=== PATIENT | male | born 1960 | race Caucasian/White ===

== ENCOUNTER 2021-02-05 00:17 | Inpatient (IN) | payer OTHER ==
[~2021-02-05] VITALS: Ht 175.3 cm; Wt 75.3 kg
[2021-02-05] VITALS (11 sets, daily range): BP systolic 104–194; BP diastolic 77–111
--- NOTE | ~2021-02-05 | EMS ---
[address] [address] EMS Patient Care Report Name: NABOR CAMPUZANO Room #: 202-P ADM IN M.R.#: [id number] Admission: 02/05/21 Attend Phys: Radha Key MD Discharge: Date of : 62 Report #: [id number] THIS REPORT FOR: //name// Report Transmitted: 02/05/2021 23:01 EMS Care Summary [place], [place]/[facility] Incident [id number] @ 02/04/2021 23:48 Incident Location [address] [place] [address] Patient NABOR DAVILA Male, 60 Years 1960 Patient Address [address] [place] [address] Patient History Cardiac Condition - Other, Patient Allergies No known allergies, Patient Medications Lisinopril, Chief Complaint etoh intox Disposition Transported No Lights/[place] Reason Sick Person Transported To [facility] Narrative arrived on scene to find person sitting on the floor with crews present. airway is patent, breathing is normal, skin is pink warm and dry. he is cao4 with a gcs of 15. he has been drinking. he states that he is complaining of chest pain and alcohol intox. he was assisted to the cot where he was strapped [address] [address] EMS Patient Care Report Name: NABOR CAMPUZANO Room #: 202-P ADM IN M.R.#: [id number] Admission: 02/05/21 Attend Phys: Radha Key MD Discharge: Date of : 62 Report #: [id number] and secured. he was loaded into ambulance where vitals were monitored en route to the facility. he denies any head neck and back pain abd pain blurred or double vision and sob. there were no incidents en route to the facility. he was taken to room where report was given to rn without incident and he was left in same condition as picking up. Initial Vitals @00:09P: 123,R: 18,BP: 116/90,Pain: 0/10,GCS: 15,Glucose: 205,SpO2: 99,Revised Trauma: 12, @PTAP: 128,R: 18,BP: 120/88,GCS: 15,SpO2: 97,Revised Trauma: 12, Assessments @00:11MENTAL:Person Oriented,Time Oriented,Event Oriented,Place Oriented,SKIN:HEENT:Head/Face: No Abnormalities,Neck/Airway: No Abnormalities,LUNG SOUNDS:General: No Abnormalities,ABDOMEN:General: No Abnormalities,PELVIS//GI:EXTREMITIES:Left Arm: No Abnormalities,Right Arm: No Abnormalities,Left Leg: No Abnormalities,Right Leg: No Abnormalities,PULSE:NEURO:No Abnormalities, Impression Chest Pain, Other (Non-Cardiac) Procedures @[id number]-[id number] ECGResponse: Unchanged Timeline COMMANDING OFFICER MOTORIZED SQUAD,12-Lead ECG,Response: Unchanged COMMANDING OFFICER MOTORIZED SQUAD,BP: 120/88 M,PULSE: 128,RR: 18 R,SPO2: 97 Ox,ETCO2: ,BG: ,PAIN: ,GCS: 15, 23:44,Dispatch Notified 23:48,Dispatched 23:50,En Route 23:59,On Scene 00:01,At Patient 00:09,BP: 116/90 M,PULSE: 123,RR: 18 R,SPO2: 99 Ox,ETCO2: ,B,PAIN: 0,GCS: 15, 00:09,Depart Scene 00:13,At Destination 00:30,Call Closed 23:44,Call Received Disclaimer v1.1 Copyright 2020 [employer] This EMS Care Summary contains data elements from the applicable legal record (which may be displayed differently). It is designed to provide pertinent information for the following purposes: continuity of care, clinical quality, and state data reporting. The complete legal record is available to ED staff [address] [address] EMS Patient Care Report Name: NABOR CAMPUZANO Room #: 202-P ADM IN ..#: [id number] Admission: 02/05/21 Attend Phys: Radha Key MD Discharge: Date of : 62 Report #: [id number] and administrators of the receiving hospital in [employer]'s Patient Tracker. All data is provided "as is."
[2021-02-05 00:58] LABS: ABSOLUTE NEUTROPHILS 13.6 thou/uL (1.4-8.2); BASOPHILS 0.3 % (0.0-2.0); HEMATOCRIT 37.1 % (42.0-52.0); HEMOGLOBIN 13.2 gm/dL (14.0-18.0); LYMPHOCYTES 5.6 % (24.0-44.0); MCH 34.1 pg (26.0-34.0); MCHC 35.6 g/dL (28.0-37.0); MONOCYTES 4.4 % (1.0-8.0); PLATELET COUNT 209 thou/uL (150-400); POLYS 89.7 % (36.0-66.0); RBC 3.86 mil/uL (4.50-6.00); RDW 14.3 % (10.5-14.5); WBC 15.2 thou/uL (4.0-11.0)
[2021-02-05 01:25] LABS: ALBUMIN 4.1 g/dL (3.4-5.0); CALCIUM 9.2 mg/dL (8.5-10.1); CREATININE 3.3 mg/dL (0.7-1.3); DIRECT BILIRUBIN 1.1 mg/dL (<0.1-0.2); MAGNESIUM 1.4 mg/dL (1.8-2.4); PHOSPHORUS 4.7 mg/dL (2.5-4.9); TOTAL PROTEIN 7.8 g/dL (6.4-8.2)
[2021-02-05 01:29] LABS: POTASSIUM 1.9 mmol/L (3.5-5.1); TOTAL BILIRUBIN 2.6 mg/dL (0.2-1.0)
[2021-02-05 01:30] LABS: TROPONIN-I 1.01 ng/mL (<0.06)
--- NOTE | 2021-02-05 03:30 | NUR ---
PT IS ALERT TO SELF. HOMELESS COMPLAINS OF CHEST PAIN. NOTIFIED CARDIOLOGY OF CONSULT. ETOH PROTOCAL STARTED. TRYIES TO GET OUT OF BED VERY IMPULSIVE. CIWA SCALE IS 14. TREMORS. REQUESTING WATER KEPT PT NPO FOR CARDIOLOGY TO SEE PT. MEDS GIVEN AND PHSYICAN NOTIFIED DUE TO VOMITING AND CIWA SCALE. ATIVAN GIVEN IV FOR PT AT MAR TIME. LACERATION ON LIP AND LACERATION ON LEFT EAR. FALL COUPLE OF DAYS AGO . HE REPORTS HE DRINKS VODKA 1/2 PINT DRINKER HE REPORTS. HAND TREMORS REPORTS HE IS AT [facility].
[2021-02-05 05:18] LABS: CREATININE 2.4 mg/dL (0.7-1.3)
[2021-02-05 05:25] LABS: CHOLESTEROL 169 mg/dL (<200); HDL CHOLESTEROL 85 mg/dL (>40); LDL CHOLESTEROL 63 mg/dL (<100); POTASSIUM 1.9 mmol/L (3.5-5.1); SERUM ASSESSMENT Clear; TRIGLYCERIDE 108 mg/dL (<150); VLDL 22 mg/dL (<40)
--- NOTE | 2021-02-05 08:27 | NUR ---
AFTER SHIFT CHANGE PT REPORTED TO NURSE CHEST PAIN OF A 9/10. PT STATES "IT FEELS LIKE AN ELECTRICAL SHOCK GOING THROUGH MY CHEST". BLOOD PRESSURE WAS 194/86 WITH A HR OF 129. CHEST PAIN PROTOCOL STARTED, 1 NITRO SUBLINGUAL GIVEN, STAT EKG ORDERED. CARDIOLOGY PHYSICAL SCIENTIST ISAK ON UNIT AND ASSESSED PT. NO RAPID REPONSE CALLED DUE TO CARDIOLOGY PHYSICAL SCIENTIST BEING HERE. BLOOD PRESSURE WAS TAKEN AGAIN AND WAS 136/82 WITH A HR OF 139. PHYSICAL SCIENTIST STATED SHE CAN NOT ORDER MORPHINE SO WE WILL NOTIFY ELECTROCARDIOGRAPHIC TECHNICIAN. OK BY PHYSICAL SCIENTIST GIVEN TO GO AHEAD AND GIVE 2MG LOREZAPAM PER CWAL PROTOCOL. 0815 5MG LOPRESSOR ORDERED AND GIVEN. BLOOD PRESSURE 147/99, HR 135. LOREZAPAM GIVEN AT THIS TIME AFTER LOPRESSOR. 0826- BLOOD PRESSURE 152/103. HR 102. 1 NITRO SUBLINGUAL GIVEN. BLOOD PRESSURE 134/63, HR 114. 0836, DR. ACHARYA ROUNDED, STATED NOT TO GIVE ANY MORE NITRO, AND NO TO MORPHINE ORDER. CHANGE PANTOPRAZOLE ORDER TO BID AND OK TO START PT ON HEART HEALTHY DIET.
--- NOTE | 2021-02-05 08:49 | EKG ---
[place] [address] [facility] [place] [address] ELECTROCARDIOGRAM REPORT Name: JUSTENNABOR DRE Room #: 202-P ADM IN M.R.#: [id number] Admission: 02/05/21 Attend Phys: Radha Key MD Discharge: Date of : 62 Report #: [id number] [facility] ED Test Date: 2021-02-05 Test Time: 00:27:03 Pat Name: NABOR CAMPUZANO Department: Room: 202 Gender: M Equipment Operator: : 1960 Requested By: Christian Holt Order Number: [id number] MD: Wally Whitten Measurements Intervals [place] Rate: 132 P: 75 [place]: 115 QRS: 58 QRSD: 88 T: 90 QT: 397 QTc: 589 Interpretive Statements Sinus tachycardia Nonspecific ST segment abnormality Prolonged QT interval Baseline wander in lead(s) I No previous ECG available for comparison Electronically Signed On 02-05-2021 8:49:54 CDT by Wally Whitten [email or web address] <ELECTRONICALLY SIGNED> By: Wally Whitten MD, [facility] 02/05/21 0849 0027 0027 Wally Whitten MD, FACC /EPI
--- NOTE | 2021-02-05 08:52 | EKG ---
[place] [address] [facility] [place] [place] [address] ELECTROCARDIOGRAM REPORT Name: JUSTENNABOR Room #: 202-P ADM IN M.R.#: [id number] Admission: 02/05/21 Attend Phys: Radha Key MD Discharge: Date of : 62 Report #: [id number] [facility] Test Date: 2021-02-05 Test Time: 07:46:22 Pat Name: NABOR CAMPUZANO Department: Room: 202 P Gender: M Medicine Technologist: JEANNIE : 1960 Requested By: Xavier Villalta Order Number: [id number] MD: Wally Whitten Measurements Intervals [place] Rate: 139 P: 36 [place]: 111 QRS: 34 QRSD: 82 T: 104 QT: 342 QTc: 520 Interpretive Statements Sinus tachycardia Nonspecific ST segment abnormality Prolonged QT interval Compared to ECG 02/05/2021 00:27:03 No significant change was found Electronically Signed On 02-05-2021 8:51:51 CDT by Wally Whitten [email or web address] <ELECTRONICALLY SIGNED> By: Wally Whitten MD, [facility] 02/05/21 0851 5 5 Wally Whitten MD, [facility] /EPI
--- NOTE | 2021-02-05 14:41 | 2DMMODE ---
[facility] [place] [address] 2 D/M-MODE ECHOCARDIOGRAM Name: JUSTENNABOR Room #: 202-P ADM IN M.R.#: [id number] Admission: 02/05/21 Attend Phys: Radha Key MD Discharge: Date of : 62 Report #: [id number] THIS REPORT FOR: cc: [facility] - Clinic physician unknown [facility] - Clinic physician unknown Martin Reyna MD ~ APPROVED REPORT Study performed: 02/05/2021 13:33:47 EXAM: Comprehensive 2D, Doppler, and color-flow Echocardiogram Patient Location: Bedside Room #: 202 Status: routine BSA: 1.86 Rhythm: NSR Other Information Study Quality: Adequate Indications Chest Pain 2D Dimensions IVSd: 9.70 (7-11mm) LVOT Diam: 20.20 (18-24mm) LVDd: 44.73 mm PWd: 10.42 (7-11mm) Ascending Ao: 36.26 (22-36mm) LVDs: 31.32 (25-40mm) Aortic Root: 37.15 mm IVC: 17.00 mm Aortic Valve AoV Peak Jeremy.: 1.06 m/s AO Peak Gr.: 4.49 mmHg LVOT Max P.33 mmHg LVOT Max V: 1.04 m/s SURAJ Vmax: 3.15 cm2 Pulmonary Valve PV Peak Jeremy.: 0.96 m/s PV Peak Gr.: 3.66 mmHg Left Ventricle The left ventricle is normal size. There is normal LV segmental wall motion. There is normal left ventricular wall thickness. Left ventricular systolic function is normal. LVEF is 55-60%. The left [facility] [address] [place] [address] 2 D/M-MODE ECHOCARDIOGRAM Name: NABOR CAMPUZANO Room #: 202-P ADM IN M.R.#: [id number] Admission: 02/05/21 Attend Phys: Radha Key MD Discharge: Date of : 62 Report #: [id number] ventricular diastolic function is abnormal. Right Ventricle The right ventricle is normal size. The right ventricular systolic function is normal. Atria The left atrium size is normal. The right atrium size is normal. Aortic Valve The aortic valve is normal in structure. No aortic regurgitation is present. There is no aortic valvular stenosis. Mitral Valve The mitral valve is normal in structure. There is no mitral valve regurgitation noted. No evidence of mitral valve stenosis. Tricuspid Valve The tricuspid valve is normal in structure. There is no tricuspid valve regurgitation noted. Pulmonic Valve The pulmonary valve is normal in structure. There is no pulmonic valvular regurgitation. Great Vessels The aortic root is normal in size. IVC is normal in size and collapses >50% with inspiration. Pericardium There is no pericardial effusion. <Conclusion> The left ventricle is normal size. There is normal left ventricular wall thickness. Left ventricular systolic function is normal. The right ventricle is normal size. The left atrium size is normal. The aortic valve is normal in structure. There is no mitral valve regurgitation noted. <ELECTRONICALLY SIGNED> By: Martin Reyna MD 02/05/21 1441 144 144 Martin Reyna MD /INF
--- NOTE | 2021-02-05 18:34 | NUR ---
AT BEGINNING OF SHIFT PT HAD CRITICAL K OF 1.9 FROM AM LABS. PT HAD ALREADY RECEIVED 1 BAG OF 20MEQ OF K. THIS RN ONCE 1ST BAG WAS COMPLETE STARTED 2ND BAG OF K. FOR A TOTAL OF 40MEQ OF K. HOSPITALIST ROUNDED AND INITIALLY WROTE FOR NEW K ORDER AT TID BUT THEN CHANGED ORDER TO GIVE K IV BID. NEPHROLOGY WROTE ORDERS FOR PO K BUT THAT WAS NOT GIVEN DUE TO BEING A DUPLICATE OF THE IV K. LAB REDRAW ORDERS ALSO PLACED BY HOSPITALIST. PT HAS REMAINED ST THIS SHIFT.
[2021-02-06 04:25] VITALS: BP 153/101
[2021-02-06 04:55] LABS: HEMATOCRIT 25.3 % (42.0-52.0); MCH 35.5 pg (26.0-34.0); MCHC 36.7 g/dL (28.0-37.0); RBC 2.61 mil/uL (4.50-6.00); WBC 10.7 thou/uL (4.0-11.0)
[2021-02-06 05:21] LABS: HEMOGLOBIN 9.3 gm/dL (14.0-18.0)
[2021-02-06 05:31] LABS: CALCIUM 7.7 mg/dL (8.5-10.1); CREATININE 1.4 mg/dL (0.7-1.3); MAGNESIUM 1.8 mg/dL (1.8-2.4); TROPONIN-I 0.24 ng/mL (<0.06)
[2021-02-06 05:33] LABS: POTASSIUM 2.9 mmol/L (3.5-5.1)
[2021-02-06 08:09] VITALS: BP 185/112
--- NOTE | 2021-02-06 10:58 | NUR ---
THIS MORNING PT HAD A CHEST PAIN, EKG WAS ORDERD CARDIOLOGY WAS NOTIFIED, ATIVAN PO IS BEING GIVEN SINCE PT IS ABLE TO TOLERATE PO, CIWA SCORING AT 10 AT THIS TIME. PT IS BEING INCONTINENT, RN RECOMMENDED CONDOM CATH, PT PRESENTED THREATENING BEHAVIOUR, RN DID NOT APPLY THE CONDOM CATH. POTASSIUM IS STILL LOW, SPOKE ABOUT IT WITH , 40MEQ PO BEING GIVEN POST 40MEQ IV WAS GIVEN. LAST K CHECK WAS 3.0 WILL CONTINUE SUPPORTING CARE FOR ETOH WITHDRAWAL
[2021-02-06 11:13] VITALS: BP 154/87
--- NOTE | 2021-02-06 13:08 | EKG ---
[address] [place] [address] ELECTROCARDIOGRAM REPORT Name: NABOR CAMPUZANO Room #: 202-P ADM IN M.R.#: [id number] Admission: 02/05/21 Attend Phys: Radha Key MD Discharge: Date of : 62 Report #: [id number] [facility] Test Date: 2021-02-06 Test Time: 08:36:13 Pat Name: NABOR CAMPUZANO Department: Room: 202 P Gender: M Personnel Security Specialist: JEANNIE : 1960 Requested By: Martin Reyna Order Number: [id number] MD: Kwadwo Posadas Measurements Intervals [place] Rate: 110 P: 52 [place]: 139 QRS: 44 QRSD: 88 T: 55 QT: 366 QTc: 496 Interpretive Statements Sinus tachycardia Compared to ECG 02/05/2021 07:46:22 ST (T wave) deviation no longer present Electronically Signed On 02-06-2021 13:08:05 CDT by Kwadwo Posadas [email or web address] <ELECTRONICALLY SIGNED> By: Kwadwo Posadas MD 02/06/21 1308 D: 05/835 5 Kwadwo Posadas MD /JOB
[2021-02-06 14:17] VITALS: BP 170/103
--- NOTE | 2021-02-06 16:36 | NUR ---
Patient admits with ETOH withdraw and fall at home. Patient confused and agitated was given medication per RN. Patient resting. Patient has ID insurance. [facility] following
[2021-02-06 19:35] VITALS: BP 169/101
[2021-02-07] VITALS (77 sets, daily range): BP systolic 83–185; BP diastolic 50–132
--- NOTE | 2021-02-07 00:34 | NUR ---
pt is holding his chest and is nausea and voniting with his chest pain. BP is elevated, nitro given and metoprolol given. spoke with david, he stated clearly pt needs to be snowed and needs his alcohol withdrawl controlled. pt has been given ativen po and he is continuing to be agitated. spoke with rocket engine component mechanic RETAINING ROOM CUTTER, icu transfer ordered.
--- NOTE | 2021-02-07 01:39 | NUR ---
transferred to ICU at approx 0115. second dose of nitro given at 0105. at time of transfer pt verbalizing/yelling. He had not been able to verbalize words clearly just one hour prior.
[2021-02-07 05:07] LABS: BE(vivo) 4.4 mmol/L (-2 to +3); PO2 107.4 mmHg (80.0-100.0); pH 7.486 (7.360-7.450); sO2 98.2 % (92.0-98.0)
[2021-02-07 05:24] LABS: HEMATOCRIT 22.1 % (42.0-52.0); MCH 35.7 pg (26.0-34.0); MCV 99.1 fL (80.0-100.0); RBC 2.23 mil/uL (4.50-6.00); RDW 15.2 % (10.5-14.5); WBC 8.5 thou/uL (4.0-11.0)
[2021-02-07 06:09] LABS: CALCIUM 7.7 mg/dL (8.5-10.1); CREATININE 1.2 mg/dL (0.7-1.3); POTASSIUM 3.2 mmol/L (3.5-5.1); TROPONIN-I 0.08 ng/mL (<0.06)
--- NOTE | 2021-02-07 06:41 | NUR ---
Received patient from about 0120. Patient awake and very restless. Patient became extremely combative, thrashing, and yelling. 2mg Ativan given. Waiting for Preceex gtt. Patient continued to become more and more agitated requiring 4 people to hold him in the bed. Order for IM Zyprexa given by JESSICA Pérez. This was given. Still very agitated. Precedex bolus given and gtt started. Still very agitated with HR in the 150's and RR in the 50's. Additional 4 mg Ativan given per [facility] protocol. With this and the Precedex gtt, patient finally started to settle down. HR dropped into the low 100's. RR in the 40's. and blood pressure in the low 100's. Patient has required several more doses of ativan as he periodically wakes and becomes agitated, increasing HR and RR. ABG done because of the nature of his breathing. Results WNL. Am labs drawn. Results noted. K+ noted to be low. Patient already on BID potassium. Adequate oxygenation on 2-4L. Minimal U/O.Patient is not progreswsing towards goals.
--- NOTE | 2021-02-07 08:44 | EKG ---
[address] [address] ELECTROCARDIOGRAM REPORT Name: NABOR CAMPUZANO Room #: 247-P ADM IN M.R.#: [id number] Admission: 02/05/21 Attend Phys: Radha Key MD Discharge: Date of : 62 Report #: [id number] [facility] Test Date: 2021-02-07 Test Time: 00:05:50 Pat Name: NABOR CAMPUZANO Department: Room: 247 Gender: M Adzing And Boring Machine Helper: [id number] : 1960 Requested By: Alexandra Pérez Order Number: [id number] : Cornelio De Leon Measurements Intervals [place] Rate: 131 P: 41 NE: 103 QRS: 29 QRSD: 80 T: 39 QT: 320 QTc: 473 Interpretive Statements Sinus tachycardia Compared to ECG 02/06/2021 08:36:13 No significant changes Electronically Signed On 02-07-2021 8:44:04 CDT by Cornelio De Leon [email or web address] <ELECTRONICALLY SIGNED> By: Cornelio De Leon MD, [facility] 02/07/21 0844 0005 Hanny De Leon MD, FACC /EPI
[2021-02-07 11:31] LABS: URINE BLOOD 3+ (Negative); URINE GLUCOSE-RANDOM* NEGATIVE (Negative); URINE KETONES 1+ (Negative); URINE NITRITE-REFLEX NEGATIVE (Negative); URINE PROTEIN (DIPSTICK) 2+ (Negative)
[2021-02-07 11:34] LABS: URINE CLARITY SL HAZY; URINE COLOR AMBER; URINE LEUKOCYTES-REFLEX 1+ (Negative)
[2021-02-07 11:35] LABS: ICTOTEST (BILI CONFIRMATORY) Negative (Negative); URINE BILIRUBIN NEGATIVE (Negative)
[2021-02-07 11:49] LABS: CASTS None Seen /LPF (None Seen); SQUAMOUS 0-3 Few /LPF (0-3)
[2021-02-07 11:50] LABS: BACTERIA-REFLEX None Seen /HPF (None Seen); CRYSTALS None Seen /LPF (None Seen); URINE RBC >20 Many /HPF (NONE SEEN); URINE WBC-REFLEX 0-5 Rare /HPF (0-5)
--- NOTE | 2021-02-07 13:30 | NUR ---
Temperature noted to physicians this am. Order for potassium noted to Dr. LANE, he wants another round of potassium given this afternoon after the am dose given. Labs reviewed with physician. Question aspiration pneumonia, antibiotics to start. Cultures sent first. Ciwa's as documented. Report given to another TRACK BROOM OPERATOR for continuation of care. Urine output noted to physician as well as blood pressure, IV fluid bolus provided per MD order.
[2021-02-07 15:42] LABS: INR 1.14; PROTIME 12.3 Seconds (10.5-12.1)
[2021-02-07 15:47] LABS: % SATURATION 9 % (20-39); IRON 14 ug/dL (65-175); TIBC 158 ug/dL (250-450)
[2021-02-08] VITALS (42 sets, daily range): BP systolic 94–138; BP diastolic 56–92
[2021-02-08 00:06] LABS: HAV IgM AB (ANTI-HAV IgM) Negative (Negative); HEPATITIS B SURFACE AG Negative (Negative); HEPATITIS C VIRUS AB <0.1 (0.0-0.9)
[2021-02-08 05:10] LABS: HEMATOCRIT 25.4 % (42.0-52.0); HEMOGLOBIN 9.1 gm/dL (14.0-18.0); MCH 35.7 pg (26.0-34.0); MCHC 35.8 g/dL (28.0-37.0); MCV 99.7 fL (80.0-100.0); RBC 2.55 mil/uL (4.50-6.00); WBC 11.6 thou/uL (4.0-11.0)
[2021-02-08 05:19] LABS: CALCIUM 7.8 mg/dL (8.5-10.1); CREATININE 1.3 mg/dL (0.7-1.3); POTASSIUM 3.9 mmol/L (3.5-5.1)
--- NOTE | 2021-02-08 06:30 | NUR ---
Received pt. on 2L/NC .Pt. sounds gurgly and unable to clear secretions. Suction orally per savannah prn. Tachypneic with resp rate 28/min. Dr. Ontiveros notified and order received. IV fluids dc'd and lasix 40 mg IV given and diuresed well. RT titrated O2 to keep O2 sat >90%. At 2315 O2 at 3L/NC then 6L. Around MN , RT placed 100% NRB around MN then titrated back down to 6L and around 0300 back to 100% NRB. O2 sat has been in the upper 90's. Pt. repositioned for comfort. He has been afebrile. Lab called for positive blood culture which has been conveyed to DIRECTOR PRODUCT SAFETY immigration investigator. ID consult placed and called this am. Psych consult also called to answering service. Pt. has been restless and trashes around on bed when awake. Precedex gtt. on max dose and prn lorazepam IV 2 mg given x1 dose.
[2021-02-08 15:48] LABS: ALBUMIN 1.5 g/dL (3.4-5.0); DIRECT BILIRUBIN 0.3 mg/dL (<0.1-0.2); TOTAL BILIRUBIN 0.6 mg/dL (0.2-1.0); TOTAL PROTEIN 3.5 g/dL (6.4-8.2)
--- NOTE | 2021-02-08 18:23 | NUR ---
ciwa score this shift 7-12. more responsive this afternoon. followed simple command and opened eyes spontaneously. vital signs wnl. spoke with eileen and updated her on condition, progress and plan of care.
[2021-02-09] VITALS (24 sets, daily range): BP systolic 108–163; BP diastolic 74–114
--- NOTE | 2021-02-09 05:33 | NUR ---
PT HAS BEEN AGITATED OFF AND ON THROUGHOUT SHIFT, CAN GIVE BIRTHDATE ACCURATELY, BUT DOES NOT KNOW THE CURRENT MONTH OR YEAR. SPEECH IS GARBLED AND DIFFICULT TO UNDERSTAND. OCCASIONALLY STATES HE IS IN THE HOSPITAL, CANNOT NAME WHICH ONE. BECAME EXTREMELY ANXIOUS AND AGITATED APPROXIMATELY 0400, ASKING FOR HIS , STATING THAT IT WAS A MISTAKE FOR HIM TO BE IN THE HOSPITAL, AND THAT HE WAS BEING KIDNAPPED. ATTEMPTED TO REORIENT AND REASSURE PT, BUT REQUIRED ATIVAN TO CALM DOWN. SR-ST, BP STABLE, ON 2L NC. ONE EPISODE OF DESAT DOWN TO 83%, WAS ABLE TO COUGH AND CLEAR SECRETIONS AND EPISODE RESOLVED. REMAINS ON MAX DOSE PRECEDEX. BATH GIVEN, TOLERATED WELL. FOLLOWS COMMANDS BUT DOES NOT APPEAR TO TRACK LONG SENTENCES.
--- NOTE | 2021-02-09 14:00 | NUR ---
discussed during am rounds and los. cont to required restraints rt agitation. o2 per nasal cannula. no contacts for shmuel. no anticipated dc over the weekend. will cont following as needed for dc needs.
--- NOTE | 2021-02-09 14:06 | NUR ---
ASSUMED CARE IF PT AROUND 1300. PT RESTING QUIETLY. VSS, PRECEDEX GTT INFUSING PER ORDER, JOE TO LISETH. WILL CONTINUE TO MONITOR.
[2021-02-10] VITALS (12 sets, daily range): BP systolic 146–174; BP diastolic 91–104
--- NOTE | 2021-02-10 06:46 | NUR ---
ASSESSMENTS CHARTED, MEDS CHARTED GIVEN. PATIENT IN BED DURING SHIFT. CONFUSED, RESTLESS DURING SHIFT. ON PRECIDEX DRIP DURING SHIFT. INCREASED DRIP FROM 1.2 TO 1.4MCG/KG/HR DURING SHIFT THE PATIENT WAS VERY RESTLESS WITH MAX LORAZEPAM. NPO DURING SHIFTS. DID NOT REQUIRE COVERAGE FOR BLOOD GLUCOSE. ON RESTRAINTS [address] PRECAUTIONS IN PL[address] DURING SHIFT.
[2021-02-11] VITALS (25 sets, daily range): BP systolic 148–182; BP diastolic 85–110
[2021-02-11 04:26] LABS: HEMOGLOBIN 7.3 gm/dL (14.0-18.0); WBC 10.7 thou/uL (4.0-11.0)
[2021-02-11 04:29] LABS: MCH 35.5 pg (26.0-34.0); MCHC 36.6 g/dL (28.0-37.0); MCV 97.1 fL (80.0-100.0); RBC 2.05 mil/uL (4.50-6.00); RDW 15.7 % (10.5-14.5)
[2021-02-11 04:34] LABS: HEMATOCRIT 19.9 % (42.0-52.0)
[2021-02-11 04:42] LABS: ALBUMIN 1.7 g/dL (3.4-5.0); CALCIUM 8.1 mg/dL (8.5-10.1); CREATININE 0.8 mg/dL (0.7-1.3); MAGNESIUM 1.4 mg/dL (1.8-2.4); PHOSPHORUS 3.4 mg/dL (2.5-4.9); TOTAL BILIRUBIN 1.5 mg/dL (0.2-1.0); TOTAL PROTEIN 5.6 g/dL (6.4-8.2)
[2021-02-11 04:43] LABS: POTASSIUM 2.6 mmol/L (3.5-5.1)
--- NOTE | 2021-02-11 05:28 | NUR ---
PT BEEN RESTING IN NO NEW ACUTE DISTRESS.PT LIGHTLY SEDATED ON PRECEDEX.CONTINUE TO DISPLAY ETOH WITHDRAWAL S/SX WITH CIWR OF 15.SEVERELY AGITATED INTERMITTENTLY REQUIRING SEDATIVES PRN.REPOSITIONED IN BED FREQUENTLY FOR COMFORT.PT ALERT TO SELF,FOLLOWS SIMPLE COMMANDS.OPEN EYES SPONTANEOUSLY.VSS.CLONIDINE GIVEN FOR HTN.DIAZ DD LARGE AMOUNT OF URINE.CRITICAL LABS CALLED IN TO GEODETIC TECHNICIAN,SEE N/OS.PT FREQUENTLY ASKING FOR HIS ,REORIENTED FREQUENTLY.ANTIBIOTICS INFUSED PER ORDERS,TOLERATING.SR ON TELE.PT DENIES ANY PAIN.POC IS TO CONTINUE W/CURRENT ORDERS ADN MEDICAL MANAGEMENT.
[2021-02-11 09:03] LABS: HEMATOCRIT 20.7 % (42.0-52.0); HEMOGLOBIN 7.1 gm/dL (14.0-18.0)
--- NOTE | 2021-02-11 09:53 | NUR ---
ASSUMED CARE OF PT AT 0700, PT IS AGITATED, YELLING, MOANING, CRYING OUT. IS NOT ORRIENTED AT ALL
[2021-02-12] VITALS (29 sets, daily range): BP systolic 138–211; BP diastolic 81–157
[2021-02-12 05:46] LABS: HEMATOCRIT 20.7 % (42.0-52.0); HEMOGLOBIN 7.5 gm/dL (14.0-18.0); MCH 35.3 pg (26.0-34.0); MCHC 36.2 g/dL (28.0-37.0); MCV 97.7 fL (80.0-100.0); RBC 2.12 mil/uL (4.50-6.00); RDW 16.3 % (10.5-14.5); WBC 11.4 thou/uL (4.0-11.0)
[2021-02-12 05:52] LABS: CALCIUM 8.3 mg/dL (8.5-10.1); CREATININE 0.8 mg/dL (0.7-1.3)
[2021-02-12 05:56] LABS: MAGNESIUM 1.6 mg/dL (1.8-2.4); PHOSPHORUS 3.3 mg/dL (2.6-4.7); POTASSIUM 2.9 mmol/L (3.5-5.1)
--- NOTE | 2021-02-12 06:00 | NUR ---
REMAINS ON ALCHOL WITHDRAWL PROTOCAL PT HAS PERIODS OF RESTLESSNESS AND HOWLING LIKE A FALCON CARINE. PRECEDEX 1.4 ATIVAN PRN PROTOCAL. AFEBRILE. 1400 CC UO THIS SHIFT. SINUS RHYTHM. WILL CONT TO MONITOR
--- NOTE | 2021-02-12 08:46 | NUR ---
Rec goal tpn of 75ml/hr.
--- NOTE | 2021-02-12 10:55 | NUR ---
RN performed bedside swallow - pt able to take some small pills with water if sitting up in bed.
--- NOTE | 2021-02-12 14:07 | NUR ---
chart review. discuss during los and am rounds. [facility] no contacts for shmuel. will cont following as needed for dc needs. cont confused with agitation.
--- NOTE | 2021-02-12 22:33 | NUR ---
Unable to perform accurate CIWA assessment due to patients condition.
--- NOTE | 2021-02-12 23:57 | NUR ---
Blood pressures may be innaccurate due to patient movement and inability to stay still when cuff goes off.
[2021-02-13] VITALS (25 sets, daily range): BP systolic 155–195; BP diastolic 92–143
[2021-02-13 03:42] LABS: CALCIUM 8.3 mg/dL (8.5-10.1); CREATININE 0.8 mg/dL (0.7-1.3)
[2021-02-13 03:47] LABS: MAGNESIUM 1.8 mg/dL (1.8-2.4)
[2021-02-13 04:23] LABS: BE(vivo) -1.3 mmol/L (-2 to +3); HCO3 20.9 mmol/L (22.0-26.0); PCO2 27.6 mmHg (35.0-45.0); PO2 89.1 mmHg (80.0-100.0); pH 7.497 (7.360-7.450); sO2 97.5 % (92.0-98.0)
--- NOTE | 2021-02-13 04:44 | NUR ---
RN expressed concerns regarding patients high blood pressure and difficulty breathing with YANDEL Womack. Orders received. Wll continue to monitor.
--- NOTE | 2021-02-13 08:10 | NUR ---
ASSUMED CARE OF PT AT 0700. PATIENT IS STILL DETOXING, HE IS AGGITATED AND RESTLESS AND THE HALDOL ISN'T HELPING AND NEITHER IS THE ATIVAN OR PRECEDEX.
[2021-02-14] VITALS (23 sets, daily range): BP systolic 108–209; BP diastolic 71–129
[2021-02-14 05:43] LABS: HEMATOCRIT 21.8 % (42.0-52.0); HEMOGLOBIN 7.6 gm/dL (14.0-18.0); MCH 33.8 pg (26.0-34.0); MCV 96.7 fL (80.0-100.0); RBC 2.25 mil/uL (4.50-6.00); RDW 16.2 % (10.5-14.5); WBC 16.2 thou/uL (4.0-11.0)
[2021-02-14 05:50] LABS: CALCIUM 8.2 mg/dL (8.5-10.1); CREATININE 0.8 mg/dL (0.7-1.3); MAGNESIUM 1.8 mg/dL (1.8-2.4); PHOSPHORUS 2.2 mg/dL (2.5-4.9)
[2021-02-14 05:53] LABS: POTASSIUM 2.7 mmol/L (3.5-5.1)
--- NOTE | 2021-02-14 19:21 | NUR ---
pt oriented to self today. compliant w/nurisng care throughout most of shift. stated seing people in corner in am and, "flashes of light," in afternoon. pt unable to get out of chair due to pt weakness and lack of corridantion. potassium replaced, now theraperutic. restraints off 1500 and now w/1:1. prn for agitation given x1. remains on precdex gtt, increased to 1.4 in evening.
[2021-02-15] VITALS (18 sets, daily range): BP systolic 124–182; BP diastolic 76–111
[2021-02-15 05:50] LABS: RBC 1.91 mil/uL (4.50-6.00); WBC 12.4 thou/uL (4.0-11.0)
[2021-02-15 05:52] LABS: MCH 33.4 pg (26.0-34.0); MCHC 34.4 g/dL (28.0-37.0); MCV 97.3 fL (80.0-100.0)
[2021-02-15 05:54] LABS: HEMATOCRIT 18.6 % (42.0-52.0); HEMOGLOBIN 6.4 gm/dL (14.0-18.0)
[2021-02-15 06:10] LABS: CALCIUM 7.8 mg/dL (8.5-10.1); CREATININE 0.7 mg/dL (0.7-1.3); MAGNESIUM 1.9 mg/dL (1.8-2.4); POTASSIUM 3.4 mmol/L (3.5-5.1)
[2021-02-15 20:28] LABS: HEMOGLOBIN 7.3 gm/dL (14.0-18.0)
--- NOTE | 2021-02-15 20:33 | NUR ---
AT APPX 1400, DR. CHANEL HERE TO PERFORM BEDSIDE I/D ON ABSCESS MIDSTERNAL AREA. SPECIMENS COLLECTED BY DR. CHANEL WERE SENT TO THE LAB FOR TESTING.
[2021-02-16] VITALS (26 sets, daily range): BP systolic 155–202; BP diastolic 93–119
[2021-02-16 05:47] LABS: HEMATOCRIT 21.2 % (42.0-52.0); HEMOGLOBIN 7.4 gm/dL (14.0-18.0); MCH 33.2 pg (26.0-34.0); MCV 95.1 fL (80.0-100.0); RBC 2.23 mil/uL (4.50-6.00); RDW 17.6 % (10.5-14.5); WBC 12.4 thou/uL (4.0-11.0)
[2021-02-16 06:09] LABS: CALCIUM 7.9 mg/dL (8.5-10.1); CREATININE 0.7 mg/dL (0.7-1.3); MAGNESIUM 1.8 mg/dL (1.8-2.4); PHOSPHORUS 3.4 mg/dL (2.5-4.9); POTASSIUM 3.7 mmol/L (3.5-5.1)
--- NOTE | 2021-02-16 08:23 | NUR ---
Pt extremely anxious this AM, requesting more medicine. Dex restarted for now. Will discuss with team in rounds.
--- NOTE | 2021-02-16 10:49 | NUR ---
Pt requesting transfer to [facility], will inform case management.
--- NOTE | 2021-02-16 12:05 | NUR ---
chart review. discussed during los and am rounds. going to [facility] today. connie called left message with [facility] medical service coordinator # [phone] or [phone] pt reported to beside nurse and MD he is [facility]. connie spoke with eileen [phone], she will be coming up to visit.
--- NOTE | 2021-02-16 12:39 | NUR ---
, Yoana, at bedside talking calmly with patient.
[2021-02-17] VITALS (16 sets, daily range): BP systolic 153–178; BP diastolic 79–111
--- NOTE | 2021-02-17 12:56 | NUR ---
PATIENT TRANSFERRED TO CCU AT 1252. PATIENT'S BELONGINGS/CHART TAKEN WITH PATIENT.
--- NOTE | 2021-02-17 20:04 | NUR ---
PT CARE ASSUMED AT 1300. ASSESSMENTS CHARTED. MEDICATIONS CHARTED. RIJ 3L PICC, D/C'D BY PT. LFA IV. SINUS TACHYCARDIA. JOE. MRI POSSIBLE FRIDAY. EF 55-60%.
[2021-02-18] VITALS (8 sets, daily range): BP systolic 170–181; BP diastolic 90–110
[2021-02-18 04:18] LABS: CALCIUM 8.6 mg/dL (8.5-10.1); CREATININE 0.8 mg/dL (0.7-1.3); MAGNESIUM 1.7 mg/dL (1.8-2.4); PHOSPHORUS 3.5 mg/dL (2.5-4.9); POTASSIUM 3.4 mmol/L (3.5-5.1)
--- NOTE | 2021-02-18 05:57 | NUR ---
PHARMACY AND Armond TURNER NOTIFIED OF PT PULLING R IJ AND TPN PLACED ON HOLD TO REEVALUATE IN AM, BP REMAINS ELEVATED AND PRN MEDS GIVEN, HR REMAINS ST, DIAZ CON'T TO DRAIN DARK YELLOW URINE, UP TO BR WITH ASSIST X1 WITH 3 BM'S THRU THE NOC, PRN PAIN MEDS GIVEN FOR C/O NONCARDIAC CP, TOLERATING MECH SOFT DIET, A&O YET KEEPS HEARING SOMEONE CALL HIS NAME, WILL CON'T TO MONITOR PER PPOC.
--- NOTE | 2021-02-18 16:44 | NUR ---
PT CARE ASSUMED AT 0700. ASSESSMENTS CHARTED. MEDICATIONS CHARTED. LFA IV. SINUS TACHYCARDIA. DIAZ. STERNUM BANDAGE; CHEST WALL ABCESS. ACHS; FULL LIQUIDS DIET. MRI POSSIBLE FRIDAY OR FRIDAY. PT SLEPT ON AND OFF ON DAY SHIFT.
[2021-02-19] VITALS (9 sets, daily range): BP systolic 152–175; BP diastolic 93–112
--- NOTE | 2021-02-19 03:48 | NUR ---
PT RESTING QUIETLY THRU THE NOC, PRN PAIN MEDS GIVEN FOR C/O NON CARDIAC CHEST PAIN, DRESSING CDI OVER CHEST ABCESS, BP REMAINS ELEVATED PRN MEDS GIVEN AND SCHEDULED BP MEDS, PT MOVES SELF IN BED AND UP WITH ASSIST TO BR DIAZ WITH YELLOW URINE DRAINAGE, WILL CONT TO MONITOR PER PPOC.
[2021-02-19 04:42] LABS: ABSOLUTE NEUTROPHILS 6.8 thou/uL (1.4-8.2); BASOPHILS 2.7 % (0.0-2.0); HEMATOCRIT 22.9 % (42.0-52.0); HEMOGLOBIN 8.2 gm/dL (14.0-18.0); LYMPHOCYTES 13.7 % (24.0-44.0); MCH 33.9 pg (26.0-34.0); MCHC 35.7 g/dL (28.0-37.0); MONOCYTES 7.7 % (1.0-8.0); POLYS 73.9 % (36.0-66.0); RBC 2.41 mil/uL (4.50-6.00); RDW 17.1 % (10.5-14.5); WBC 9.2 thou/uL (4.0-11.0)
[2021-02-19 04:46] LABS: PLATELET COUNT 560 thou/uL (150-400)
[2021-02-19 05:04] LABS: ALBUMIN 1.9 g/dL (3.4-5.0); CALCIUM 8.2 mg/dL (8.5-10.1); CREATININE 0.8 mg/dL (0.7-1.3); POTASSIUM 3.5 mmol/L (3.5-5.1); TOTAL BILIRUBIN 0.7 mg/dL (0.2-1.0); TOTAL PROTEIN 6.6 g/dL (6.4-8.2)
--- NOTE | 2021-02-19 18:19 | NUR ---
PT CARE ASSUMED AT 0700. ASSESSMENTS CHARTED. MEDICATIONS CHARTED. RFA IV. SINUS RHYTHM. DIAZ/TOILET. CHEST WALL ABCESS SITE CLEANED AND REBANDAGED, PT REFUSED SHOWER. BM 02/19/21. POSSIBLE MRI FRIDAY. NM STRESS TEST FRIDAY.
--- NOTE | 2021-02-19 22:17 | HC ---
[facility] [place] [address] CONSULTATION Name: NABOR CAMPUZANO Room #: 205-P ADM IN M.R.#: [id number] Admission: 02/05/21 Attend Phys: Radha Key MD Discharge: Date of : 62 Report #: [id number] THIS REPORT FOR: cc: [facility] - Clinic physician unknown [facility] - Clinic physician unknown Irvin Dewitt MD ~ DOC #: [id number] Irvin Dewitt MD DATE OF SERVICE: 02/13/2021 HISTORY OF PRESENT ILLNESS: This is a 60-year-old male patient who is unable to provide any history at all. He is confused. He is agitated. He is shouting. He would not follow any commands. So, history is only from the record. He is being followed by psychiatry. He is in restraints. I reviewed the records. This patient was admitted with heavy alcohol intake, but at the same time, he was also taking some caffeine drugs, what was his premorbid cognition is not clear because the only number I have in the chart is his own number. We need to find that in this patient. In any event, this patient underwent multiple problems including hypokalemia, kidney failure, sepsis and is not coming back the best I can tell to his baseline, but we do not know what his baseline was. REVIEW OF SYSTEMS: Positive for alcohol abuse, hypertension. This patient was fairly able to sustain the conversation in emergency room as I understand he has a history of dehydration, hypomagnesemia, that is all the 14-point review of system I could get it after trying in the record. PAST MEDICAL HISTORY: Positive for heavy alcohol abuse. FAMILY HISTORY: Unavailable. SOCIAL HISTORY: Positive for heavy alcohol abuse. PHYSICAL EXAMINATION: Limited. He would not even follow simple commands. He was shouting irrelevantly. Looks like he can move both sides and does not appear to have any meningeal sign. He could not cooperate with the fundus examination. He is well-built individual. LABORATORY DATA: Last white count was 11.4. Cardiac examinations appear noncontributory. His hemoglobin is low, but is not very low. The GFR now is normal. It was low, when he came in. IMPRESSION: This patient needs further workup to make sure there is no etiology for his symptoms. I do not know what his premorbid status was and I cannot find out and lot of it may be premorbid if he was drinking that much alcohol. I am [facility] [address] [place] [address] CONSULTATION Name: JUSTENNBAOR ERICKSON Room #: 205-P ADM IN M.R.#: [id number] Admission: 02/05/21 Attend Phys: Radha Key MD Discharge: Date of : 62 Report #: [id number] not sure how much is reversible while the test he will need is EEG and MRI of the brain with and without contrast if it can be done as an initial test and further testing will depend upon that. Thank you very much for this referral. MD MOISES Brower/CLEVELANDK <ELECTRONICALLY SIGNED> By: Irvin Dewitt MD 02/19/21 2217 2038 0016 Irvin Dewitt MD /nt
--- NOTE | 2021-02-19 22:23 | EEG ---
[facility] [place] [address] ELECTROENCEPHALOGRAM Name: NABOR CAMPUZANO Room #: 205-P ADM IN M.R.#: [id number] Admission: 02/05/21 Attend Phys: Radha Key MD Discharge: Date of : 62 Report #: [id number] THIS REPORT FOR: //name// DOC #: [id number] Irvin Dewitt MD DATE OF SERVICE: 02/14/2021 This patient is being evaluated for altered mental status. EEG was done by placing the electrode by standard 10-20 system of electrode placement. Both referential and sequential montages were used for recording. Background activity in this patient's EEG is about 8 Hz and 15-20 microvolt. The patient became drowsy and that is associated with bilateral slowing and vertex sharp waves. Photic stimulation is unremarkable. Throughout the record, no active epileptiform activity was noticed. IMPRESSION: This patient's EEG is intermixed with some slowing on both sides, but no active epileptiform activity was noticed. Thank you very much for this referral. Irvin Dewitt MD PK/SAT <ELECTRONICALLY SIGNED> By: Irvin Dewitt MD 02/19/21 2223 1055 1107 Irvin Dewitt MD /nt
--- NOTE | 2021-02-19 22:23 | EEG ---
[facility] [place] [address] [place] [address] ELECTROENCEPHALOGRAM Name: NABOR CAMPUZANO Room #: 205-P ADM IN M.R.#: [id number] Admission: 02/05/21 Attend Phys: Radha Key MD Discharge: Date of : 62 Report #: [id number] THIS REPORT FOR: //name// DOC #: [id number] Irvin Dewitt MD DATE OF SERVICE: 02/17/2021 This patient is being evaluated for twitching movements and for the possibility of seizure. EEG was done by placing the electrode by standard 10-20 system of electrode placement. Both referential and sequential montages were used for recording. Background activity in this patient's EEG is about 9 Hz and 20 microvolt. The patient became drowsy that is associated with bilateral slowing. Photic stimulation is unremarkable. Throughout the record, no active epileptiform activity was noticed. IMPRESSION: This patient's EEG does not demonstrate any active epileptiform activity. Thank you very much for this referral. Irvin Dewitt MD PK/JUS <ELECTRONICALLY SIGNED> By: Irvin Dewitt MD 02/19/21 2223 0947 0957 Irvin Dewitt MD /nt
--- NOTE | 2021-02-20 00:36 | NUR ---
ASSESSMENTS CHARTED, MEDS CHARTED GIVEN. PATIENT RESTING IN BED DURING SHIFT. ALERT AND ORIENTED. BLOOD PRESSURE IS ELEVATED. CLONIDINE GIVEN. C/O PAIN AT CHEST ABSCESS SITE. DRESSING CHANGED DUE TO SATURATION. PAIN MEDS GIVEN CHARTED. FALL PRECAUTIONS IN PLACE DURING SHIFT. PATIENT DOES NOT EAT DAIRY.
[2021-02-20 04:45] VITALS: BP 180/115
[2021-02-20 05:10] VITALS: BP 175/108
[2021-02-20 08:30] VITALS: BP 169/108
[2021-02-20 11:35] VITALS: BP 129/40
--- NOTE | 2021-02-20 15:19 | NUR ---
Met with patient who is Alert/Orientated discussed [facility]. Patient in agreement. Discussed ETOH and patient reports has been to [facility] in past and plans to resume at [facility]. Patient [facility]. Patient reports his Yoana [phone] if an RN. He reports she can help with dressing changes on outpatient basis. Discussed likely HH benefit with [place] insurance. Patient reports he lives in house alone. Patient reports his does not live with him. They have 2 children 06/09. His older child will be staying with him at [facility]. His geography instructor is moving into home and will be there 14/04. 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 Left message and updated patient not stable for discharge today. casemgt following.
--- NOTE | 2021-02-20 16:36 | NUR ---
STRESS TEST NEGATIVE TODAY, MRI OF HEAD NEGATIVE. CHEST ABCESS DRAINING SS FLUID. PACKED WITH 1/4 INCH NU GAUZE AND DRESSING APPLIED. NO CARDIAC CHEST PAIN TODAY, MUCH IMPROVED MENTATION AND COOPERATION. IMPROVED STEADY GAIT, STAND BY ASSIST.
[2021-02-20 20:59] VITALS: BP 187/103
[2021-02-21 00:20] VITALS: BP 154/107
[2021-02-21 04:50] LABS: HEMATOCRIT 24.9 % (42.0-52.0); HEMOGLOBIN 8.8 gm/dL (14.0-18.0); MCH 33.3 pg (26.0-34.0); MCHC 35.3 g/dL (28.0-37.0); MCV 94.6 fL (80.0-100.0); RBC 2.64 mil/uL (4.50-6.00); RDW 17.2 % (10.5-14.5); WBC 7.4 thou/uL (4.0-11.0)
[2021-02-21 04:55] VITALS: BP 161/107
[2021-02-21 05:06] LABS: CALCIUM 8.3 mg/dL (8.5-10.1); CREATININE 0.8 mg/dL (0.7-1.3)
[2021-02-21 05:17] LABS: POTASSIUM 2.9 mmol/L (3.5-5.1)
--- NOTE | 2021-02-21 07:28 | NUR ---
SLEPT MOST OF SHIFT. UP TO BATHROOM WITH STANDBY ASSIST. CALLS APPROPRIATLY. WORKING ON GOALS AND PLAN OF CARE FOR NOC. WORKING ON GOALS AND PLAN OF CARE FOR NOC. PAIN MEDICATION GIVEN PRN NEEDED. SISTER CALLED PATIENT AND TOLD HIM HIS MOTHER LAST NOC. INFORMATION PASSED ON TO DAY NURSE. AWAITING DR TO ARRIVE.
[2021-02-21 07:30] VITALS: BP 167/94
[2021-02-21 10:43] LABS: SOURCE CHEST FLUID
[2021-02-21 10:44] LABS: CLARITY TURBID; COLOR RED; TOTAL VOLUME 52 mL
[2021-02-21 11:07] LABS: BF NUCLEATED CELLS 645 /mm3; BF RBC 51459 /mm3
[2021-02-21 12:00] VITALS: BP 156/105
[2021-02-21 14:33] LABS: BF NEUTROPHILS 5 %
[2021-02-21 14:34] LABS: BF MACROPHAGE 26 %
[2021-02-21 19:29] VITALS: BP 163/105
[2021-02-21 23:32] VITALS: BP 160/108
[2021-02-22 04:05] VITALS: BP 150/75
[2021-02-22 04:59] LABS: HEMATOCRIT 26.3 % (42.0-52.0); HEMOGLOBIN 9.1 gm/dL (14.0-18.0); MCH 32.8 pg (26.0-34.0); MCHC 34.7 g/dL (28.0-37.0); MCV 94.6 fL (80.0-100.0); RBC 2.79 mil/uL (4.50-6.00); RDW 17.5 % (10.5-14.5); WBC 6.3 thou/uL (4.0-11.0)
[2021-02-22 05:06] LABS: CALCIUM 8.4 mg/dL (8.5-10.1); CREATININE 0.9 mg/dL (0.7-1.3); POTASSIUM 3.3 mmol/L (3.5-5.1)
--- NOTE | 2021-02-22 07:35 | NUR ---
SLEPT PART OF SHIFT. UP AD ANDREY IN ROOM WITH STEADY GAIT. DENIES COMPLAINTS OF PAIN THIS AM. WORKING ON GOALS. NPO FOR AM LUIS. CONTINUE TO ASSES.
--- NOTE | 2021-02-22 10:46 | TEE ---
[facility] [place] [address] [place] [address] TRANSESOPHAGEAL ECHOCARDIOGRAM Name: NABOR CAMPUZANO Room #: 205-P ADM IN M.R.#: [id number] Admission: 02/05/21 Attend Phys: Radha Key MD Discharge: Date of : 62 Report #: [id number] THIS REPORT FOR: cc: [facility] - Clinic physician unknown [facility] - Clinic physician unknown Cornelio De Leon MD [facility] ~ APPROVED REPORT Study performed: 02/22/2021 08:50:05 EXAM: Comprehensive 2D, Doppler, and color-flow Echocardiogram Patient Location: In-Patient Room #: 9 Status: routine BSA: 1.90 HR: 104 bpm BP: 151/84 mmHg Rhythm: Tachycardia Other Information Study Quality: Good Indications R^O Endocarditis Echo Enhancing Agent Indication: Rule out Shunt Agent(s) / Amount(s) Used: Agitated Saline 7 cc Procedure After obtaining informed consent, patient underwent transesophageal echo in the [facility]. Type of Sedation : Conscious Sedation Sedation was administered by Laura Myers RN. Sedation start time: 903 Case end Time: 907 Sedation was achieved intravenously with: Versed (6 mg) Fentanyl (50 mcg) Transesophageal probe was inserted and advanced into esophagus without difficulty by Cornelio De Leon MD. Echo enhancement indication: R/O Septal defect. Echo enhancement agent administered: Agitated Saline The LUIS was performed without complications. Throughout the procedure, the blood pressure, pulse oximetry, cardiac [facility] [address] [place] [address] TRANSESOPHAGEAL ECHOCARDIOGRAM Name: NABOR CAMPUZANO Room #: 205-P ADM IN M.R.#: [id number] Admission: 02/05/21 Attend Phys: Radha Key MD Discharge: Date of : 62 Report #: [id number] rhythm, and rate were monitored. The patient tolerated the procedure without adverse effects. Recovery from conscious sedation was uneventful and vital signs were stable. Left Ventricle The left ventricle is normal size. There is normal LV segmental wall motion. There is normal left ventricular wall thickness. Left ventricular systolic function is normal. The left ventricular ejection fraction is within the normal range. LVEF is 55-60%. Right Ventricle The right ventricle is normal size. The right ventricular systolic function is normal. Atria The left atrium size is normal. Interatrial septum is intact without evidence of ASD or PFO. The right atrium size is normal. Aortic Valve The aortic valve is normal in structure. No aortic regurgitation is present. There is no aortic valvular stenosis. Mitral Valve The mitral valve is normal in structure. There is no mitral valve regurgitation noted. No evidence of mitral valve stenosis. Tricuspid Valve The tricuspid valve is normal in structure. There is no tricuspid valve regurgitation noted. Pulmonic Valve The pulmonary valve is normal in structure. There is no pulmonic valvular regurgitation. Great Vessels The aortic root is normal in size. Pericardium There is no pericardial effusion. <Conclusion> Consent was obtained Timeout was performed Esophageal probe was advanced without difficulty after appropriate sedation [facility] [address] [place] [address] TRANSESOPHAGEAL ECHOCARDIOGRAM Name: JUSTENNABOR ERICKSON Room #: 205-P [facility] IN M.R.#: [id number] Admission: 02/05/21 Attend Phys: Radha Key MD Discharge: Date of : 62 Report #: [id number] Normal left ventricular size/wall thickness ejection fraction 60% Normal right ventricular size/function Normal atrial size Color-flow Doppler studies performed of the aortic/mitral/tricuspid/pulmonary valve Normal aortic/mitral valve structure and function No tricuspid valve insufficiency Normal aortic root size No pericardial effusion Aorta calcification detected No evidence of ASD/VSD by color flow/bubble study Patient tolerated procedure well <ELECTRONICALLY SIGNED> By: Cornelio De Leon MD, FACC 02/22/21 1046 1046 45 Cornelio De Leon MD, FACC /INF
--- NOTE | 2021-02-22 10:47 | NUR ---
PT IS AXOX4, PLEASANT; PT WENT DOWN FOR LUIS THIS AM. DR MAYFIELD CONSULTED. PT HAS CHEST STERNAL OPENING. DR BLANC CONSULTED. INFECTIOUS DISEASE CONSULTED. WILL CONTINUE TO ASSESS PT AND STERNAL SITE NEEDED. PT STATES HE WOULD LIKE TO LEAVE THE HOSPITAL, BUT WOULD PREFER TO NOT LEAVE AGAINST MEDICAL ADVICE. [facility]. WILL CONTINUE TO COMMUNICATE PT NEEDS. NO CONCERNS AT THIS TIME.
[2021-02-22 11:25] LABS: SOURCE CHEST
[2021-02-22] MEDS ORDERED: NORVASC10 MG PO (14:28)
[2021-02-22] MEDS ORDERED: CARDIZEM CD240 M1 PO (14:29)
[2021-02-22] MEDS ORDERED: BENICAR40 MG PO (14:29)
[2021-02-22] MEDS ORDERED: PROTONIX40 M2 PO (14:30)
[2021-02-22 14:48] VITALS: BP 148/87
--- NOTE | 2021-02-22 15:22 | NUR ---
Orders to arrange for home infusion/picc line rec'd. Pt dcing today and going to [facility] for emergency/ in the family. Discussed need for iv atb due to infection. Pt aware of how serious his health situation is but does not feel he can stay in the hospital today. He need to go to [facility] and make arrangements for his mother. Support provided. Pt agree[facility] to have the [facility] so he can get that started upon his return. [facility] left for the [facility] transitional RN Anders to initiate home infusion services. Editor Managing Director spoke with the community care coor at the [facility] as well and she indicates Anders is the best contact. Awaiting response.
[2021-02-22 15:33] VITALS: BP 148/87
[2021-02-22 16:05] VITALS: BP 148/87
[2021-02-22 17:17] VITALS: BP 148/87
--- NOTE | 2021-02-22 17:40 | NUR ---
RECEIVED THE PATIEN CONSICOUS AND ORIENTED.ON ROOM AIR BREATHING SPONTANEOUSLY.NOT IN PAIN OR DISTRESS.LUIS DONE.DISCHARGE INSTRUCTIONS GIVEN. DISCHARGE PACKET GIVEN AND EXPLAINED TO THE PATIENT.DISCHARGE DPATIEN TON STABLE CONDITION.
[2021-02-23 14:07] LABS: BODY FLUID ALBUMIN 1.7 g/dL (Not Estab.); BODY FLUID AMYLASE 36 U/L (()); BODY FLUID GLUCOSE 92 mg/dL (()); BODY FLUID LDH 364 IU/L (()); BODY FLUID PROTEIN 3.8 g/dL (())
--- NOTE | 2021-02-24 11:36 | HC ---
[facility] [place] [address] CONSULTATION Name: NABOR CAMPUZANO Room #: 205-P [facility] IN M.R.#: [id number] Admission: 02/05/21 Attend Phys: Radha Key MD Discharge: 02/22/21 Date of : 62 Report #: [id number] THIS REPORT FOR: cc: [facility] - Clinic physician unknown [facility] - Clinic physician unknown Yvon Fishman MD ~ DOC #: [id number] Yvon Fishman MD DATE OF SERVICE: 02/20/2021 We were asked by Dr. Wu to see the patient. HISTORY OF PRESENT ILLNESS: The patient is a 60-year-old admitted on 02/05/2021. The patient presented to the ER for right-sided chest pain. The patient has a history of falling at home and sustained lacerations to the skin above upper lip and left ear. The patient stated he was drinking prior to the fall and does not remember how he fell. There were complaints of nausea and vomiting with some blood noted in the admitting note, although the patient did not provide this history to me directly. We note the alcohol level of 126 and CPK was elevated at 2000. Creatinine greater than 3. Since admission, the patient was found to have positive blood cultures for Staph aureus and then ten days into the admission, the patient ____ abscess on the lower right sternal border. This required incision and drainage in the operating room and according to Dr. Ramachandran his general surgeon the abscess has improved dramatically, but continues to drain. Gram-stain showed a few white cells and rare gram-positive cocci and Staph aureus was identified and apparently is sensitive to oxacillin. Chest CT scan currently shows a right pleural effusion, but there is no such effusion seen on the admitting chest x-ray and the fusion seems to have developed over the 02/12 through 02/15. We note that the patient proceed with [facility] and the patient has been accepted by the [facility], but they have no beds currently at least that is the report per the social sciences research scientist. OTHER PAST HISTORY: The patient is treated for hypertension as an outpatient. No diabetes mellitus reported. DRUG ALLERGIES: None known. REVIEW OF SYSTEMS: I agree with the review of systems as dictated in the ER note and I found nothing to modify it. SOCIAL HISTORY: Significant for alcohol use. The patient states he consumes [address] [address] CONSULTATION Name: NABOR CAMPUZANO Room #: 205-P [facility] IN M.R.#: [id number] Admission: 02/05/21 Attend Phys: Radha Key MD Discharge: 02/22/21 Date of : 62 Report #: [id number] fifth of alcohol every 3 days. PHYSICAL EXAMINATION: GENERAL: Currently, the patient is lying in bed, seems comfortable. VITAL SIGNS: Temperature 37.4, heart rate 103, respiratory rate 18, blood pressure 175/108, O2 sat 95% on room air. HEENT: No scleral icterus. No arcus. NECK: No mass, no bruit. CHEST: Clear to auscultation. We do note the dressing covering a small incision in the right lower paramedian costal margin. The dressing was covering the wound that has some purulent drainage with some cellulitis around it. The sternum itself appears stable and I do not feel any movement with respiration to the ribs and the articulations to the lower sternal border or costal margin. HEART: Rhythm is regular. No murmurs. ABDOMEN: Soft, no mass, no tenderness. EXTREMITIES: No clubbing, cyanosis or edema. VASCULAR: 2+ distal pulses. SKIN: No other rash or infection is noted. NEUROLOGIC: No limitation of movement or no indication of problems with sensation. PSYCHIATRIC: Shows insight into problem and answers questions appropriately. ASSESSMENT: The patient appears to have a chest wall abscess. My concern is that there is some nidus for infection such as an avascular costal cartilage, but there were no skin breaks and it is not clear how this infection developed. The pleural effusion appears to have developed since admission and as such, it is reasonable to tap this. It does not appear to be related to any focal pneumonia per se and the patient does not act as he has an empyema with pulmonary distress and persistent infection or respiratory limitation. Dr. Ramachandran states that the wound is getting better. As such, his program to continue to drain it is reasonable. If this does appear to be a chronic drain that may perhaps exploration for infected and avascular foreign body or nidus for infection would be appropriate. Thank you for the consult. Yvon Fishman MD /ALL [address] [address] CONSULTATION Name: NABOR CAMPUZANO Room #: 205-P [facility] IN M.R.#: [id number] Admission: 02/05/21 Attend Phys: Radha Key MD Discharge: 02/22/21 Date of : 62 Report #: [id number] <ELECTRONICALLY SIGNED> By: Yvon Fishman MD 02/24/21 1136 1243 2151 Yvon Fishman MD /nt
== END 2021-02-22 17:58 | disposition home or self-care (01) | DRG 871 ==
LOC: ER 00:17 → ICU 02:32 → EROBS 02:32 → 2N 02:32 → ICU 02-07 01:46 → 2N 02-17 13:12
PROVIDERS: Emergency Medicine; Hospitalist; Internal Medicine Pulmonary Disease; Nurse Practitioner; Nurse Practitioner Family; Specialist; ADMIT Internal Medicine; ATTEND Internal Medicine
PROC: 02HV33Z Insertion of Infusion Device into Superior Vena Cava, Percutaneous Approach (ICD-10-PCS; principal; 2021-02-05)
PROC: 5A0935A Assistance with Respiratory Ventilation, Less than 24 Consecutive Hours, High Flow/Velocity Cannula (ICD-10-PCS; 2021-02-08)
PROC: 30233N1 Transfusion of Nonautologous Red Blood Cells into Peripheral Vein, Percutaneous Approach (ICD-10-PCS; 2021-02-15)
PROC: 0W980ZZ Drainage of Chest Wall, Open Approach (ICD-10-PCS; 2021-02-15)
PROC: 0DJ08ZZ Inspection of Upper Intestinal Tract, Via Natural or Artificial Opening Endoscopic (ICD-10-PCS; 2021-02-16)
PROC: 3E033HZ Introduction of Radioactive Substance into Peripheral Vein, Percutaneous Approach (ICD-10-PCS; 2021-02-20)
PROC: 4A02XM4 Measurement of Cardiac Total Activity, External Approach (ICD-10-PCS; 2021-02-20)
PROC: 0W993ZZ Drainage of Right Pleural Cavity, Percutaneous Approach (ICD-10-PCS; 2021-02-21)
DX: A41.01 Sepsis due to Methicillin susceptible Staphylococcus aureus (principal); J96.01 Acute respiratory failure with hypoxia; I21.4 Non-ST elevation (NSTEMI) myocardial infarction; G92 Toxic encephalopathy; K20.91 Esophagitis, unspecified with bleeding; K29.81 Duodenitis with bleeding; J69.0 Pneumonitis due to inhalation of food and vomit; N17.9 Acute kidney failure, unspecified; M62.82 Rhabdomyolysis; K92.0 Hematemesis; L02.213 Cutaneous abscess of chest wall; F10.139 Alcohol abuse with withdrawal, unspecified; F05 Delirium due to known physiological condition; J98.11 Atelectasis; J91.8 Pleural effusion in other conditions classified elsewhere; I12.9 Hypertensive chronic kidney disease with stage 1 through stage 4 chronic kidney disease, or unspecified chronic kidney disease; K70.10 Alcoholic hepatitis without ascites; E87.6 Hypokalemia; E83.42 Hypomagnesemia; R74.01 Elevation of levels of liver transaminase levels; F10.129 Alcohol abuse with intoxication, unspecified; E86.0 Dehydration; N18.9 Chronic kidney disease, unspecified; D64.9 Anemia, unspecified; D69.6 Thrombocytopenia, unspecified; K44.9 Diaphragmatic hernia without obstruction or gangrene; S20.219A Contusion of unspecified front wall of thorax, initial encounter; X58.XXXA Exposure to other specified factors, initial encounter; Z79.82 Long term (current) use of aspirin; Z79.899 Other long term (current) drug therapy; Y93.89 Activity, other specified; Y92.89 Other specified places as the place of occurrence of the external cause; Y99.8 Other external cause status; Z20.822 Contact with and (suspected) exposure to COVID-19
CPT/HCPCS: 10078; 10081; 62110; 62900; 85076